=== PATIENT | female | born 2000 | race Two or more races ===

== ENCOUNTER 2020-07-30 03:58 | Emergency (ER) | payer SELFPAY ==
[~2020-07-30] VITALS: Ht 165.1 cm; Wt 90.7 kg
[2020-07-30 05:33] LABS: Urine Bacteria FEW /hpf (None Seen); Urine Blood Negative /uL (Negative); Urine Mucus FEW (None Seen); Urine WBC 2 /hpf (0 - 5)
[2020-07-30 07:30] VITALS: BP 122/76
[2020-07-30] MEDS ORDERED: KETOROLAC TROMETH 60MG/2ML VIAL IM ONE (07:30)
== END 2020-07-30 07:55 | disposition home or self-care (01) ==
LOC: ER 03:58
DX: S39.012A Strain of muscle, fascia and tendon of lower back, initial encounter (principal); X58.XXXA Exposure to other specified factors, initial encounter; Y93.89 Activity, other specified; Y92.89 Other specified places as the place of occurrence of the external cause; Y99.8 Other external cause status
CPT/HCPCS: 81001; 81025; 96372; 99283; J1885